=== PATIENT | male | born 1995 | race Caucasian/White ===

== ENCOUNTER → 2021-10-30 16:40 | Outpatient (CLI) | payer OTHER, SELFPAY | PROVIDERS: Visit Provider Nurse Practitioner | DX: Z20.822 Contact with and (suspected) exposure to COVID-19 (principal) | CPT/HCPCS: C9803; U0003; U0005 ==

== ENCOUNTER 2025-07-08 09:54 | Outpatient (CLI) | payer BC, SELFPAY ==
--- OUTSIDE RECORDS SUMMARY | 2025-07-08 09:55 | XMS_ITS | Clinical Summary ---
Author Organization [facility] Address [address] [place] [address] Phone Care Team Providers Care Speech Therapist Technician Name Role Phone Unavailable Primary Care Provider Unavailabl e Allergies No known active allergies Medications No known medications Social History Tobacco Use Types Packs/Day Years Used Date Smoking Tobacco: Never Smokeless Tobacco: Former Sex and Gender Information Value Date Recorded Sex Assigned at Not on file Legal Sex Male 10:20 AM EST Gender Identity Not on file Sexual Orientation Not on file Obstetrics History Last Filed Vital Signs Vital Sign Reading Time Taken Comments Blood Pressure 128/70 10/16/2019 10:37 AM EST Pulse 85 10/16/2019 10:37 AM EST Temperature 37.3 C (99.1 F) 10/16/2019 10:37 AM EST Respiratory Rate 18 10/16/2019 10:37 AM EST Oxygen Saturation 99% 10/16/2019 10:37 AM EST Inhaled Oxygen Concentration - - Weight 81.9 kg (180 lb 9.6 oz) 10/16/2019 10:37 AM EST Height 185.4 cm (6' 1 ) 10/16/2019 10:37 AM EST Body Mass Index 23.83 10/16/2019 10:37 AM EST Plan of Treatment Health Maintenance Due Date Last Done Comments Annual Wellness Exam 1999 DTaP/TDaP/Td (1 - Tdap) 2015 Hepatitis B Vaccine (1 of 3 - 19+ 3-dose series) 2015 COVID-19 Vaccine ( - 2023-2 5 season) 2025 Influenza Vaccine (#1) 2025 Meningococcal B Vaccine Aged Out No l onger eligible based on patient's age to complete this topic Pneumococcal Vaccine 0-49 Aged Out No longer eligible based on patient's age to complete this topic Insurance [facility] CHOICE PLUS [id number]
--- NOTE | 2025-07-08 09:56 | US_ITS ---
FINAL REPORT CLINICAL HISTORY: SCROTAL MASS FINDINGS: SCROTAL ULTRASOUND FINDINGS: Testes have a homogeneous architecture. No masses are seen. Normal flow is demonstrated by Doppler exam. No significant fluid collections are present. There is a cystic mass in the midline located between the testes. This is considered benign in nature. This could represent a large exophytic epididymal cyst or spermatocele or loculated hydrocele. The abnormality measures 35 x 20 x 31 mm. There is a small right epididymal head cyst measuring up to 17 mm. IMPRESSION: 1. No evidence of testicular neoplasm 2. Benign appearing cystic mass located between the testes may represent a large up to 35 mm exophytic epididymal cyst or loculated hydrocele. Although nonspecific this is considered benign based on sonographic features Authenticated and ERN
== END 2025-07-08 23:59 | disposition home or self-care (01) ==
LOC: RAD 09:54
PROVIDERS: PCP Family Medicine; Visit Provider Family Medicine
DX: N50.89 Other specified disorders of the male genital organs (principal)
CPT/HCPCS: 76870